=== PATIENT | female | born 1980 ===

== ENCOUNTER 2017-01-17 14:06 | Emergency (ER) | payer BC ==
[2017-01-17 14:13] VITALS: BP 114/71; PULSE 71; RESP 16; TEMP 98; O2SAT 99
[2017-01-17] MEDS ORDERED: Oxycodone/Acetaminophen 5/325 mg Tab PO STA (14:25)
--- NOTE | 2017-01-17 14:38 | ED PDOC ---
Lower Extremity Pain/Injury Time Seen by Provider: 01/17/17 14:11 Chief Complaint (Nursing): Lower Extremity Problem/Injury Chief Complaint (Provider): 3rd toe pain History Per: Patient History/Exam Limitations: no limitations Onset/Duration Of Symptoms: Days Current Symptoms Are (Timing): Still Present Severity: Severe Pain Scale Rating Of: 9 Additional Complaint(s): Pt states a heavy glass object fell onto her foot. Pt states it did not break. Localized pain to 3rd toe. no numbness/tingling., (+) bruising to the 3rd toe, plantar and dorsal. PT took motrin at home but states it did not help. Past Medical History Reviewed: Historical Data, Nursing Documentation, Vital Signs Vital Signs: Last Vital Signs Temp 98.0 F 01/17/17 14:11 Pulse 71 01/17/17 14:11 Resp 16 01/17/17 14:11 BP 114/71 01/17/17 14:11 Pulse Ox 99 01/17/17 14:11 - Medical History PMH: No Chronic Diseases - Surgical History Surgical History: No Surg Hx - Family History Family History: States: No Known Family Hx - Living Arrangements Living Arrangements: With Family - Social History Current smoker - smoking cessation education provided: No Alcohol: None Drugs: Denies - Home Medications Home Medications: Ambulatory Orders Medication Instructions Recorded oxyCODONE/Acetaminophen [Percocet 1 ea PO Q6H PRN #5 tab 01/17/17 5/325 mg Tab] - Allergies Allergies/Adverse Reactions: Allergies Allergy/AdvReac Type Severity Reaction Status Date / Time No Known Allergies Allergy Verified 01/17/17 14:16 Review of Systems ROS Statement: Except As Marked, All Systems Reviewed And Found Negative Constitutional: Negative for: Fever, Chills Musculoskeletal: Positive for: Other (Left 3rd digit pain ) Skin: Positive for: Bruising Physical Exam - Reviewed Nursing Documentation Reviewed: Yes Vital Signs Reviewed: Yes - Physical Exam Appears: Positive for: Well, Non-toxic, No Acute Distress Head Exam: Positive for: ATRAUMATIC, NORMAL INSPECTION, NORMOCEPHALIC Skin: Positive for: Normal Color, Warm, DRY Eye Exam: Positive for: Normal appearance ENT: Positive for: Normal ENT Inspection Neck: Positive for: Normal, Painless ROM Respiratory: Negative for: Accessory Muscle Use, Respiratory Distress Back: Positive for: Normal Inspection Extremity: Positive for: Tenderness (3rd left toe ). Negative for: Normal ROM Neurologic/Psych: Positive for: Alert, Oriented - ECG O2 Sat by Pulse Oximetry: 99 Medical Decision Making Medical Decision Making: x-ray normal. Disposition - Clinical Impression Clinical Impression: Toe contusion - Patient ED Disposition Is Patient to be Admitted: No Counseled Patient/Family Regarding: Diagnosis, Need For Followup, Rx Given - Disposition Referrals: Podiatry Clinic [Outside] Disposition: Routine/Home Disposition Time: 16:06 Condition: GOOD Prescriptions: oxyCODONE/Acetaminophen [Percocet 5/325 mg Tab] 1 ea PO Q6H PRN #5 tab PRN Reason: Pain, Severe (8-10) Instructions: Contusion in Adults (ED) Forms: [facility] ([place])
[2017-01-17] MEDS ORDERED: Oxycodone/Acetaminophen 5/325 mg Tab ONE (14:49)
--- NOTE | 2017-01-17 16:39 | RAD ---
PROCEDURE: Left Foot Radiographs. HISTORY: toe injury COMPARISON: None. FINDINGS: BONES: Suspicious for nondisplaced fracture at the tip of the distal phalanx of the 3rd toe JOINTS: Normal. SOFT TISSUES: Normal. OTHER FINDINGS: None. IMPRESSION: Suspicious for nondisplaced fracture at the tip of the distal phalanx of the 3rd toe.
== END 2017-01-17 16:18 | disposition home or self-care (01) ==
LOC: H.ER 14:06
DX: S90.122A Contusion of left lesser toe(s) without damage to nail, initial encounter (principal); W22.8XXA Striking against or struck by other objects, initial encounter; Y93.9 Activity, unspecified; Y92.89 Other specified places as the place of occurrence of the external cause

== ENCOUNTER 2017-12-24 20:03 | Emergency (ER) | payer BC ==
[2017-12-24] MEDS ORDERED: Sodium Chloride 0.9% 1,000 ML IV STA (21:58)
--- NOTE | 2017-12-24 22:21 | ED PDOC ---
HPI: Abdomen Time Seen by Provider: 12/24/17 21:24 Chief Complaint (Nursing): Abdominal Pain Chief Complaint (Provider): Abdominal Pain History Per: Patient History/Exam Limitations: no limitations Onset/Duration Of Symptoms: Days Current Symptoms Are (Timing): Still Present Location Of Pain/Discomfort: Diffuse Associated Symptoms: Constipation. denies: Nausea, Vomiting Additional Complaint(s): Jerry Artis is a 37 year old female with no past medical history who is presenting to the ED for evaluation of abdominal pain and constipation onset a few days ago. Patient reports that 18 days ago she had an abdominoplasty due to significant weight loss after gastric sleeve placement (Surgery was done by Dr. Cordoba). She reports that she is unable to have a bowel movement and states that theer is foul smelling drainage and redness around umbilical wound. 2 days ago, patient states that she went to Dr. Cordoba who recommended local wound care but the symptoms have worsened. She denies any nausea or vomiting, and states she is unaware of fevers. PMD: Ruy Silva Past Medical History Reviewed: Historical Data, Nursing Documentation, Vital Signs Vital Signs: Last Vital Signs Temp 100.1 F H 12/24/17 20:40 Pulse 83 12/24/17 20:40 Resp 16 12/24/17 20:40 BP 108/75 12/24/17 20:40 Pulse Ox 97 12/25/17 00:34 - Medical History PMH: No Chronic Diseases - Surgical History Other surgeries: abdominoplasty - Family History Family History: States: Unknown Family Hx - Social History Current smoker - smoking cessation education provided: No Alcohol: None Drugs: Denies - Home Medications Home Medications: Ambulatory Orders Medication Instructions Recorded oxyCODONE/Acetaminophen [Percocet 1 ea PO Q6H PRN #5 tab 01/17/17 5/325 mg Tab] Polyethylene Glycol 3350 [Miralax] 17 g PO QAM PRN #7 pkg 12/25/17 - Allergies Allergies/Adverse Reactions: Allergies Allergy/AdvReac Type Severity Reaction Status Date / Time No Known Allergies Allergy Verified 12/24/17 20:40 Review of Systems ROS Statement: Except As Marked, All Systems Reviewed And Found Negative Gastrointestinal: Positive for: Abdominal Pain, Constipation. Negative for: Nausea, Vomiting Physical Exam - Reviewed Nursing Documentation Reviewed: Yes Vital Signs Reviewed: Yes - Physical Exam Appears: Positive for: Non-toxic, No Acute Distress Head Exam: Positive for: ATRAUMATIC, NORMAL INSPECTION, NORMOCEPHALIC Skin: Positive for: Normal Color, Warm, DRY Eye Exam: Positive for: EOMI, Normal appearance, PERRL ENT: Positive for: Normal ENT Inspection Neck: Positive for: Normal, Painless ROM Cardiovascular/Chest: Positive for: Regular Rate, Rhythm. Negative for: Murmur Respiratory: Positive for: Normal Breath Sounds. Negative for: Respiratory Distress Gastrointestinal/Abdominal: Positive for: Other (surgical wound to umbilicus: open with scant white drainage, minimal surrounding erythema without any significant induration, (+)mild tenderness to area; no fluctuance) Back: Positive for: Normal Inspection. Negative for: L CVA Tenderness, R CVA Tenderness, Vertebral Tenderness Extremity: Positive for: Normal ROM. Negative for: Deformity, Swelling Neurologic/Psych: Positive for: Alert, Oriented. Negative for: Motor/Sensory Deficits - Laboratory Results Result Diagrams: 12/24/17 22:29 12/24/17 22:29 - ECG O2 Sat by Pulse Oximetry: 97 (RA) Pulse Ox Interpretation: Normal Medical Decision Making Medical Decision Making: Time: 22:09 Impression: 37 year old female with post-operative constipation and incisional complications Plan: --CT Abd/Pelvis --CMP --Lact Acid, Plasma --ED Urine --ED Urine Dipstick --CBC --IV Fluids --Blood Culture --Urinalysis Patient declined pain medications. 00:09 CT Abd/ Pelvis FINDINGS: Lung bases: Unremarkable. No mass. No consolidation. ABDOMEN: Liver: Unremarkable. No mass. Gallbladder and bile ducts: Unremarkable. No calcified stones. No ductal dilation. Pancreas: Unremarkable. No mass. No ductal dilation. Spleen: Unremarkable. No splenomegaly. Adrenals: Unremarkable. No mass. Kidneys and ureters: Right kidney lower pole 2 mm nonobstructing calculus. Stomach and bowel: Sleeve gastrectomy. No obstruction. PELVIS: Appendix: No findings to suggest acute appendicitis. Bladder: Unremarkable. No mass. Reproductive: Unremarkable as visualized. ABDOMEN and PELVIS: Intraperitoneal space: Unremarkable. No free air. No significant fluid collection. Bones/joints: No acute fracture. No dislocation. Soft tissues: Complex fluid collection involving the umbilicus measures 3 x 2 x 2.1 cm and appears most consistent with a hematoma. Abdominoplasty changes along the midline anterior abdominal wall. Subcutaneous periumbilical stranding/edema. Vasculature: Unremarkable. No abdominal aortic aneurysm. Lymph nodes: Unremarkable. No enlarged lymph nodes. IMPRESSION: Complex fluid collection involving the umbilicus measures 3 x 2 x 2.1 cm and appears most consistent with a hematoma. 00:30 --Labs reviewed show no clinically significant abnormalities Case d/w plastic surgeon, Dr. Cordoba including CT and lab findings. Patient is to follow up with him as he established with her on offivce visit 2 days ago. She is stable for discharge and will be given an rx for Miralax. Diagnosis is abdominal wall hematoma s/p surgery and constipation. Scribe Attestation: Documented by Samira Carrillo, acting as a scribe for Ihsan Church MD. Provider Scribe Attestation: All medical record entries made by the Scribe were at my direction and personally dictated by me. I have reviewed the chart and agree that the record accurately reflects my personal performance of the history, physical exam, medical decision making, and the department course for this patient. I have also personally directed, reviewed, and agree with the discharge instructions and disposition Disposition - Clinical Impression Clinical Impression: Abdominal wall hematoma, Constipation - Patient ED Disposition Is Patient to be Admitted: No - Disposition Referrals: Adria Cordoba MD [Staff Provider] - Disposition: Routine/Home Disposition Time: 00:30 Condition: STABLE Additional Instructions: JERRY ARTIS, thank you for letting us take care of you today. Your provider was Ihsan Church MD and you were treated for ABD PAIN. The emergency medical care you received today was directed at your acute symptoms. If you were prescribed any medication, please fill it and take as directed. It may take several days for your symptoms to resolve. Return to the Emergency Department if your symptoms worsen, do not improve, or if you have any other problems. Please contact your doctor or call one of the physicians/clinics you have been referred to that are listed on the Patient Visit Information form that is included in your discharge packet. Bring any paperwork you were given at discharge with you along with any medications you are taking to your follow up visit. Our treatment cannot replace ongoing medical care by a primary care provider outside of the emergency department. Thank you for allowing the [facility] team to be part of your care today. If you had an X-Ray or CT scan: A Radiologist will review the ED reading if any change in treatment is needed we will contact you. If you had a blood, urine, or wound culture: It will take several days for the results, if any change in treatment is needed we will contact you. If you had an STI test: It will take 48 hours for the results. Please call after 1 week if you have not heard back. Prescriptions: Polyethylene Glycol 3350 [Miralax] 17 g PO QAM PRN #7 pkg PRN Reason: Constipation Instructions: Constipation in Adults Forms: [facility] ([place])
[2017-12-24 22:56] LABS: BASO % 0.6 % (0.0-2.0); EOS # 0.3 K/uL (0.0-0.7); EOS % 3.6 % (0.0-4.0); HEMOGLOBIN 10.2 g/dL (12.0-16.0); LYMPH # 1.7 K/uL (1.0-4.3); LYMPH % 23.7 % (20.0-40.0); MEAN CELL VOLUME 91.7 fl (81.0-99.0); MEAN CORPUSCULAR HEMOGLOBIN 30.2 pg (27.0-31.0); MEAN PLATELET VOLUME 8.8 fl (7.2-11.7); MONO # 0.5 K/uL (0.0-0.8); MONO % 7.5 % (0.0-10.0); NEUT # 4.7 K/uL (1.8-7.0); NEUT % 64.6 % (50.0-75.0); NRBC % 0.1 % (0.0-0.0); RBC 3.37 Mil/uL (3.80-5.20); RED CELL DISTRIBUTION WIDTH 13.6 % (11.5-14.5); WHITE BLOOD COUNT 7.2 K/uL (4.8-10.8)
[2017-12-24] MEDS ORDERED: Iohexol 300 100 ML IJ ONE (23:09)
[2017-12-24] MEDS ORDERED: Sodium Chloride 0.9% 50 ML IV ONE (23:10)
[2017-12-24 23:12] LABS: ALB/GLOB RATIO 1.1 (1.0-2.1); ALBUMIN 3.7 g/dL (3.5-5.0); ALT/SGPT 22 U/L (9-52); AST/SGOT 22 U/L (14-36); BLOOD UREA NITROGEN 12 mg/dl (7-17); CALCIUM 8.9 mg/dL (8.4-10.2); GFR NON-AFRICAN AMERICAN > 60
[2017-12-24 23:16] LABS: SQUAMOUS EPITHIAL 1 /hpf (0-5); URINE AMORPHOUS SEDIMENT RARE /ul (<OCC); URINE BACTERIA OCC (<OCC); URINE BILIRUBIN NEGATIVE (NEGATIVE); URINE BLOOD NEGATIVE (NEGATIVE); URINE CLARITY SLIGHTY-CLOUDY (Clear); URINE COLOR YELLOW (YELLOW); URINE GLUCOSE (UA) NEG (Normal); URINE HYALINE CAST 0-2 /hpf (0-2); URINE LEUKOCYTE ESTERASE NEG Leu/uL (Negative); URINE PROTEIN NEGATIVE (NEGATIVE)
[2017-12-25 01:19] VITALS: BP 103/70; PULSE 69; RESP 17; TEMP 98.3; O2SAT 99
--- NOTE | 2017-12-25 12:57 | CT ---
Date of service: 12/24/2017 PROCEDURE: CT Abdomen and Pelvis with contrast HISTORY: abdominal pain/wound drainage; post abdominoplasty COMPARISON: None. TECHNIQUE: Contrast dose: 90 mL of Omni 300 Radiation dose: Total exam DLP = 507 mGy-cm. This CT exam was performed using one or more of the following dose reduction techniques: Automated exposure control, adjustment of the mA and/or kV according to patient size, and/or use of iterative reconstruction technique. FINDINGS: LOWER THORAX: A suture line is seen in the stomach LIVER: Unremarkable. No gross lesion or ductal dilatation. GALLBLADDER AND BILE DUCTS: Unremarkable. PANCREAS: Unremarkable. No gross lesion or ductal dilatation. SPLEEN: Unremarkable. ADRENALS: Unremarkable. No mass. KIDNEYS AND URETERS: Unremarkable. No hydronephrosis. No solid mass. VASCULATURE: Unremarkable. No aortic aneurysm. BOWEL: Unremarkable. No obstruction. No gross mural thickening. APPENDIX: Normal appendix. PERITONEUM: Unremarkable. No free fluid. No free air. LYMPH NODES: Mildly enlarged inguinal lymph nodes BLADDER: Unremarkable. REPRODUCTIVE: Unremarkable. BONES: No acute fracture. OTHER FINDINGS: The report concurs with the preliminary [facility] report IMPRESSION: There is a dense fluid collection at the umbilicus measuring 2 x 3 x 3 cm. This is most likely a collection of blood. There is some subcutaneous edema and pockets of air adjacent to this collection.
== END 2017-12-25 01:25 | disposition home or self-care (01) ==
LOC: H.ER 20:03
DX: L76.32 Postprocedural hematoma of skin and subcutaneous tissue following other procedure (principal); K59.00 Constipation, unspecified
CPT/HCPCS: 74177; 80053; 81003; 81025; 83605; 85025; 87040; 87070; 96360; 99284; J7030; Q9967